=== PATIENT | female | born 1940 | race Caucasian/White ===

== ENCOUNTER 2022-05-25 15:24 | Outpatient (RCR) | payer MEDICARE, BC, SELFPAY ==
--- NOTE | 2022-08-24 08:47 | ONC.NURNOTE ---
Referral to be seen by medical oncology was sent in July. Found that patient was last seen by Dr. Bertrand 09/2018. Patient would need a mammogram, primary notified. LMOM for patient x2 and son x1 over the last month letting them know that mammogram should be done and to call and set up follow up with [place]. No return calls. Called primary care office today to let them know that have received no return calls and we will be disregarding this at this time.
== END 2022-05-25 23:00 | disposition home or self-care (01) ==
PROVIDERS: PCP Family Medicine; Visit Provider Family Medicine
DX: M25.551 Pain in right hip (principal); R53.1 Weakness; Z51.89 Encounter for other specified aftercare
CPT/HCPCS: 97110; 97140